=== PATIENT | male | born 1980 ===

== ENCOUNTER → 2024-06-25 | Outpatient (CLI) | payer BC, OTHER ==
[2024-06-25 21:38] VITALS: PULSE 61; RESP 12
[2024-06-25 22:12] VITALS: PULSE 62; RESP 12
[2024-06-25 22:34] VITALS: PULSE 69; RESP 18
[2024-06-25 23:06] VITALS: PULSE 55; RESP 18
[2024-06-25 23:29] VITALS: PULSE 56; RESP 20
[2024-06-26] VITALS (15 sets, daily range): PULSE 54–73; RESP 12–19
== END | disposition home or self-care (01) ==
LOC: SLP 20:29
PROVIDERS: ATTEND Nurse Practitioner Family
DX: G47.33 Obstructive sleep apnea (adult) (pediatric) (principal)
CPT/HCPCS: 95811